=== PATIENT | female | born 1985 | race Caucasian/White ===

== ENCOUNTER → 2021-08-28 | Outpatient (CLI) | payer OTHER ==
[~2021-08-28] MED LIST: BACTROBAN OINT22 GM EXT; IBUPROFEN600 MG PO; ZOFRAN4 MG PO
== END ==
LOC: KOH-I 14:00
DX: J32.9 Chronic sinusitis, unspecified (principal); R59.1 Generalized enlarged lymph nodes; J34.2 Deviated nasal septum
CPT/HCPCS: 70486